=== PATIENT | female | born 1995 | race African-American/Black ===

== ENCOUNTER 2017-06-03 15:14 | Emergency (ER) | payer MEDICAID ==
[~2017-06-03] VITALS: Ht 160 cm; Wt 68.0 kg
[~2017-06-03 15:14] MED LIST: DEPO150I IM; TOBR.3%O RIGHT EYE
[2017-06-03 15:16] VITALS: BP 115/76; PULSE 117; RESP 17; TEMP 99.9; O2SAT 100
--- NOTE | 2017-06-03 16:26 | PD ---
HPI . Sore throat 4 days Chief Complaint: ENT Complaint Time Seen by Provider: 16:12 Travel History International Travel<30 days: No Contact w/Intl Traveler<30days: No Traveled to known affect area: No History of Present Illness HPI 21-year-old female presents emergency department for evaluation of sore throat 4 days. Patient has intermittent fever, chills, nasal congestion and ear pressure. Patient denies any shortness breath, cough, chest pain, nausea, vomiting, diarrhea. Patient denies any major medical history. Patient doesn't take any daily medication. PFSH Past Medical History Medical History: Denies Significant Hx Diminished Hearing: No ?: Not LMP: 04/16/17 : 0 Past Surgical History Surgical History: No Previous Surgery Social History Alcohol Use: No Tobacco Use: No Substance Use: No Allergies-Medications (Allergen,Severity, Reaction): Coded Allergies: No Known Allergies (Verified Adverse Reaction, Unknown, 06/03/17) Reported Meds & Prescriptions Reported Meds & Active Scripts Active No Active Prescriptions or Reported Medications Review of Systems Except as stated in HPI: all other systems reviewed are Neg Physical Exam Narrative GENERAL: Well-nourished, well-developed 21-year-old female patient in no acute distress. Nontoxic appearing. SKIN: Focused skin assessment warm/dry. HEAD: Normocephalic. Atraumatic. EYES: No scleral icterus. No injection or drainage. EARS: Bilateral pinnae and external canals appear within normal limits. Bilateral tympanic membranes without erythema, dullness or perforation. THROAT: Shows pharyngeal injection with white exudates and tonsillar hypertrophy. Airway is patent. NECK: Supple, trachea midline. No JVD or lymphadenopathy. CARDIOVASCULAR: Regular rate and rhythm without murmurs, gallops, or rubs. RESPIRATORY: Breath sounds equal bilaterally. No accessory muscle use. GASTROINTESTINAL: Abdomen soft, non-tender, nondistended. MUSCULOSKELETAL: No cyanosis, or edema. Data Data Last Documented VS Vital Signs Date Time Temp Pulse Resp B/P (MAP) Pulse Ox O2 Delivery O2 Flow Rate FiO2 06/03/17 15:16 99.9 117 17 115/76 (89) 100 Room Air Orders Orders Group A Rapid Strep Screen (06/03/17 16:21) Ibuprofen (Motrin) (06/03/17 16:30) MDM Medical Decision Making Medical Screen Exam Complete: Yes Emergency Medical Condition: Yes Differential Diagnosis Differential diagnoses include but not limited to pharyngitis, URI, sinusitis, otitis media, bronchitis Narrative Course 21-year-old female patient presents emergency department for evaluation of sore throat 4 days. Rapid strep ordered and pending. Ibuprofen ordered for pain management. Rapid strep was positive. Patient was treated with IM injection of benzathine penicillin and discharged home with supportive care instructions. Diagnosis Primary Impression: Pharyngitis due to group A beta hemolytic Streptococci Referrals: Primary Care Physician Patient Instructions: General Instructions, Strep Throat (ED) Additional Instructions: Please return to emergency department if your symptoms return or worsen. Follow up with your primary care provider. Supportive care, stay hydrated, get enough rest, diet as tolerated. May take ibuprofen or Tylenol as needed for pain or fever. Scripts No Active Prescriptions or Reported Meds Disposition: 01 DISCHARGE HOME Condition: Stable Светлана Puente Jun 03, 2017 16:26
[2017-06-03] MEDS ORDERED: IBUPROFEN 600 MG TAB PO ONE (16:30)
[2017-06-03] MEDS ORDERED: PENICILLIN G BENZATHINE 1,200,000 UNITS/2 ML SYRINGE IM ONE (17:15)
== END 2017-06-03 18:12 | disposition home or self-care (01) ==
LOC: NEPD 15:14
DX: J02.0 Streptococcal pharyngitis (principal); B95.0 Streptococcus, group A, as the cause of diseases classified elsewhere; R50.9 Fever, unspecified
CPT/HCPCS: 87880; 96372; 99284; J0561